=== PATIENT | male | born 1990 | race Two or more races ===

== ENCOUNTER 2016-06-14 04:19 | Emergency (ER) | payer MEDICAID ==
[~2016-06-14] VITALS: Ht 167.6 cm; Wt 103.0 kg
[2016-06-14 06:53] VITALS: BP 124/83
== END 2016-06-14 08:38 | disposition home or self-care (01) ==
LOC: ER 04:22
DX: N43.3 Hydrocele, unspecified (principal); E11.9 Type 2 diabetes mellitus without complications; Z88.8 Allergy status to other drugs, medicaments and biological substances; Z68.36 Body mass index [BMI] 36.0-36.9, adult; E66.9 Obesity, unspecified
CPT/HCPCS: 76870